=== PATIENT | female | born 1940 | race Caucasian/White ===

== ENCOUNTER 2016-12-26 21:28 | Inpatient (IN) ==
[2016-12-26] MEDS ORDERED: ASPIRIN PO STA (21:38)
[2016-12-26 21:54] LABS: MANUAL DIFF NEEDED? NO
[2016-12-26 21:58] LABS: BASO% 0.4 % (0.0-0.8); EOS# 0.21 X1000 (0.0-0.7); EOS% 2.1 % (0.0-10.0); HEMATOCRIT 39.5 % (37.0-47.0); IMM GRAN# 0.01 X1000 (0.0-0.04); IMM GRAN% 0.1 % (0.0-0.5); LYMPH# 2.07 X1000 (1.2-3.4); MCH 29.5 PG (27-31); MCHC 32.9 g/dL (33-37); MCV 89.8 FL (81-99); MONO# 0.84 X1000 (0.11-0.59); MONO% 8.5 % (1.7-9.3); MPV 11.9 FL (7.4-10.4); NEUT% 67.9 % (42.2-75.2); PLT 197 X1000 (130-400)
[2016-12-26 22:18] LABS: INR 0.95 (0.86-1.15)
[2016-12-26 22:22] LABS: ALBUMIN 4.1 g/dL (3.5-5.0); CALCIUM 9.5 mg/dL (8.8-10.2); MAGNESIUM 2.1 mg/dL (1.5-2.7); POTASSIUM 3.5 mmol/L (3.5-5.1); TOTAL BILIRUBIN 0.4 mg/dL (0.20-1.00); TOTAL PROTEIN 6.8 g/dL (6.3-8.3)
[2016-12-26 22:27] LABS: PTT PL < 20.0 Seconds (22.6-43.9)
--- NOTE | 2016-12-26 23:38 | EKG Report ---
Test Performed on : 12/26/2016 9:32:21 PM Test Reason : CP Blood Pressure : / mmHG Vent. Rate : 080 BPM Atrial Rate : 080 BPM P-R Int : 176 ms QRS Dur : 094 ms QT Int : 380 ms P-R-T Axes : 076 023 056 degrees QTc Int : 438 ms Normal sinus rhythm. Normal ECG When compared with ECG of 11-OCT-2014 00:17, Nonspecific T wave abnormality no longer evident in Lateral leads Unconfirmed Result
[2016-12-27] MEDS ORDERED: ZOFRAN IV PRN ×2 (01:17→10:44)
[2016-12-27] MEDS ORDERED: MORPHINE IV PRN (01:17)
--- NOTE | 2016-12-27 08:49 | Diag Imaging Result Document ---
PROCEDURE NAME: ANGIOGRAM/PULMONARY ARTERIES - 12/26/2016 CT PULMONARY ANGIOGRAM WITH INTRAVENOUS CONTRAST: A CT dose reduction protocol was used. COMPARISON: 04/29/2016. FINDINGS: Axial CT images of the chest were obtained, after administering intravenous contrast. Coronal MIP images were generated. There is no pulmonary embolism. There is COPD. There is mild pulmonary scarring in the lung bases, particularly on the left side. No infiltrate. There are CABG changes. Heart size is normal. Upper abdominal images are unremarkable. Bony structures are intact. 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 IMPRESSION: No acute disease or change from prior. MTDD
[2016-12-27] MEDS ORDERED: DUONEB (A & A) INH PRN (10:45)
[2016-12-27] MEDS ORDERED: HUMALOG DOSE (PARKWAY) SUBQ SCH (11:00)
[2016-12-27] MEDS ORDERED: ALBUTEROL NEB INH PRN (11:01)
[2016-12-27] MEDS ORDERED: NAPROSYN PO PRN (11:03)
--- NOTE | 2016-12-27 11:11 | Diag Imaging Result Document ---
PROCEDURE NAME: CHEST-2 VIEWS - 12/26/2016 CHEST X-RAY, TWO VIEWS: COMPARISON: 08/04/2016. FINDINGS: Stable mild COPD with some pulmonary scarring in the left base. Stable CABG changes. No focal infiltrates, pneumothorax, or pleural effusion. Heart size is normal. IMPRESSION: No acute disease or change from prior.
[2016-12-27] MEDS ORDERED: LOSARTAN PO SCH (11:15)
[2016-12-27] MEDS ORDERED: NORVASC PO SCH (11:15)
[2016-12-27] MEDS ORDERED: FLONASE NAS SCH (11:15)
[2016-12-27] MEDS ORDERED: PRILOSEC PO SCH (11:15)
[2016-12-27] MEDS ORDERED: SYNTHROID PO SCH (11:15)
[2016-12-27] MEDS ORDERED: HYDROCHLOROTHIAZIDE PO SCH ×2 (11:15)
[2016-12-27] MEDS ORDERED: COZAAR PO SCH (11:15)
--- NOTE | 2016-12-27 13:36 | HISTORY AND PHYSICAL ---
PRIMARY CARE PROVIDER: Jocelynn West CHIEF COMPLAINT: Chest tightness. HISTORY OF PRESENT ILLNESS: This is a 76-year-old female with a history of CAD, COPD, who presented to the emergency room complaining of chest tightness. She states that she has arthritis and that she started having a flare up of her arthritis over the last 24 hours. It started out as a pain in her back. She said that it has increased to bilateral knee pain as well as rib pain. She states this pain does increase with movement and decreases with rest. She states that she has had chest tightness along with some increase in shortness of breath. She feels like her COPD is exacerbating, as chest tightness is her normal symptom. She denied palpitations, dizziness, syncope, any nausea, vomiting. She states that she was given an aspirin in the emergency room, and within about 45 minutes after receiving the aspirin, her arthritic pain through generalized body did decrease. Her troponin was negative. She was found to have a D-dimer of 0.82. CTA pulmonary was performed which revealed no acute disease or change from prior. No pulmonary embolus. There is COPD. Mild pulmonary scarring in the lung bases, particularly on the left. No infiltrate. She has had severe degeneration of the shoulders bilaterally. She was admitted for further evaluation and treatment. PAST MEDICAL HISTORY: COPD, obstructive sleep apnea with BiPAP at night, hypertension, hypothyroidism, history of uterine cancer. PAST SURGICAL HISTORY: Laparoscopic cholecystectomy, hysterectomy, total hip, coronary artery bypass graft. SOCIAL HISTORY: She denies alcohol, tobacco or illicit drug use. ALLERGIES: Stadol which causes shortness of breath, Zithromax which causes a rash, Demerol which causes anaphylaxis, Bactrim which causes nausea and vomiting. HOME MEDICATIONS: A list will be obtained once updated. REVIEW OF SYSTEMS: A 14-point review of systems is discussed with the patient with pertinent positives being generalized bone pain secondary to arthritis, dyspnea on exertion and chest tightness. She denied dizziness, syncope, palpitations, any productive cough, fever, chills, night sweats, recent weight loss or weight gain, any nausea, vomiting, diarrhea, constipation, black or bloody vomitus, black or bloody stools, hematuria, dysuria, frequency or urgency. PHYSICAL EXAMINATION: GENERAL: This is a 76-year-old female who is sitting up in the bed in no distress. VITAL SIGNS: Blood pressure is 110/54 with heart rate of 56, respirations 16, temperature 97.3 oral with oxygen saturation of 97% to 99% on home BiPAP and 94% to 95% on room air. HEENT: Head is normocephalic and atraumatic. Pupils are equal, round and reactive to light. EOMs are intact. Sclerae anicteric. Mucous membranes are moist. NECK: Supple. Trachea midline. CARDIOVASCULAR: Regular rate and rhythm. S1 and S2 are appreciated. PULMONARY: Breath sounds are clear with no increased work of breathing noted. GASTROINTESTINAL: Abdomen is soft, nontender and nondistended with bowel sounds in all 4 quadrants. MUSCULOSKELETAL: Good range of motion to joints. NEUROLOGICAL: She is alert and oriented x3 with cranial nerves II through XII grossly intact. EXTREMITIES: No cyanosis, clubbing or edema. Pulses are palpable x4. Calves are nontender. DIAGNOSTIC DATA: WBC is 9.84, hemoglobin 13, hematocrit 39.5, platelets 197. INR is 0.95 with D- dimer of 0.82. Sodium 138, potassium 3.5, BUN is 25, creatinine 1 with glucose of 163. Troponin is less than 0.010. CTA pulmonary revealed no pulmonary embolus with no acute process. ASSESSMENT AND PLAN: 1. Chest tightness. The patient does state this is her normal tightness with her COPD. She has had no further since shortly after arriving to the emergency room. We will continue to follow. We will identify her home medications and restart as appropriate. 2. Chest pain. She states that this pain she feels is her arthritis pain that started in her neck and over the last 24 to 48 hours has slowly spread to all of her joints. This was relieved about an hour after having aspirin in the emergency room. She does have a history of CAD. Her first troponin was negative. We will continue to trend her troponins. Continue with telemetry. Follow. 3. Chronic obstructive pulmonary disease. As stated above. 4. Hypothyroidism. In the past, she has had dosages changed due to overuse of medication. We will verify her dose and continue her levothyroxine once verified and will get TSH. 5. Diabetes mellitus. We will verify medications and pattern blood glucose with sliding scale insulin. 6. Hypertension. We will continue her home medications. Further treatments pending hospital course. Dictated by OPAL Dukes for Eder Pabon MD cc: OPAL Dukes MD
[2016-12-27 14:43] VITALS: BP 115/61
--- NOTE | 2016-12-27 17:23 | DISCHARGE SUMMARY ---
ADMISSION DATE: 12/27/2016 DISCHARGE DATE: 12/27/2016 DISCHARGE DIAGNOSES: 1. Chest pain resolved. 2. Elevated D-dimer. 3. Known history of coronary artery disease. 4. Right shoulder pain. 5. High cholesterol. 6. Chronic steroid dependence. 7. Hypertension. 8. Hypothyroidism. CONSULTATIONS: None. PROCEDURES: None. BRIEF HOSPITAL COURSE: The patient is a 76-year-old female, was admitted as noted on the HPI secondary to chest pain although after speaking to her she states this is more of a pain in her right shoulder. Because she has a history of coronary artery disease she felt nervous and came to the ER. Apparently that is the reason she was admitted overnight. Her enzymes have been negative. Her pain is better and she notes that Naprosyn actually will make her pain even better. DISPOSITION: Thirty-five minutes was spent in discharge planning and instructions. Patient is awake, alert. She is in no distress and therefore she will be discharged home. She will follow up outpatient with her primary care. She will continue her home medications without any changes. cc: Eder Pabon MD
[2016-12-27] MEDS ORDERED: CRESTOR PO SCH (21:00)
[2016-12-27] MEDS ORDERED: SINGULAIR PO SCH (21:00)
[2016-12-28] MEDS ORDERED: PREDNISONE PO SCH (09:00)
[2016-12-28] MEDS ORDERED: THERA M PLUS PO SCH (09:00)
--- NOTE | 2017-01-01 18:51 | ED EKG INTERP ---
This chart was entered by Samia Johns Scribe, acting as scribe for Abilio Mcclellan DO. EKG Interpretation - EKG Time of EKG reading by physician:: 21:32 EKG Read and Signed by:: Abilio Mcclellan EKG Interpretation (*Must complete 3 of following elements*): Normal Rate: 80 Rhythm: NSR [place]: normal QRS: normal [place] Interval: normal ST Wave: normal This chart was documented by the indicated scribe, (Samia Johns Scribe) and accurately reflects the services I performed and decisions made by , Abilio Mcclellan DO, as attested by the provider's signature.
--- NOTE | 2017-01-01 18:52 | PROVIDER DOCUMENTATION ---
This chart was entered by Samia Johns Scribe, acting as scribe for Abilio Mcclellan DO. HPI-Chest Pain - General Chief Complaint: Chest Pain Stated Complaint: CHEST PAIN Time Seen by Provider: 12/26/16 21:38 Source: patient Allergies/Adverse Reactions: Patient Allergies Allergy/AdvReac Type Severity Reaction Status Date / Time butorphanol tartrate * Allergy Intermediate SHORTNESS Verified 08/04/16 19:55 [From Stadol] OF BREATH azithromycin Allergy Mild RASH Verified 08/04/16 19:55 [From Zithromax Z-Randy] meperidine HCl * AdvReac Severe ANAPHYLAXIS Verified 08/04/16 19:55 [From Demerol] sulfamethoxazole AdvReac NAUSEA/VOMI Verified 08/04/16 19:55 [From Bactrim] TING trimethoprim [From Bactrim] AdvReac NAUSEA/VOMI Verified 08/04/16 19:55 TING Home Medications: Home Medication List Medication Instructions Recorded Confirmed Last Taken Type Esomeprazole Magnesium [Nexium] 20 mg PO DAILY 03/09/14 12/27/16 08/24/15 History Fluticasone 50 Mcg Nasal [place] 2 spray KRIS DAILY 03/09/14 12/27/16 08/24/15 History [Flonase] Montelukast [Singulair] 10 mg PO QHS 03/09/14 12/27/16 08/24/15 History Multivitamin [Multivitamins] 1 each PO DAILY 03/09/14 12/27/16 08/24/15 History Rosuvastatin Calcium [Crestor] 40 mg PO HS 03/09/14 12/27/16 08/24/15 History Albuterol Sulfate [Albuterol 8.5 gm IH DIRECTED PRN 10/08/14 12/27/16 History Sulfate Hfa] Albuterol [Albuterol Neb] 2.5 mg INH Q4H PRN PRN 10/08/14 12/27/16 08/24/15 History Amlodipine Besylate [Norvasc] 5 mg PO DAILY 10/08/14 12/27/16 08/24/15 History Losartan/Hydrochlorothiazide 1 each PO BID 10/08/14 12/27/16 08/24/15 History [Losartan-Hctz 50-12.5 mg Tab] Levothyroxine [Synthroid] 100 microgm PO DAILY #30 tablet 08/17/15 12/27/1601/03 Rx Prednisone 10 mg PO DAILY #20 tablet 08/17/15 12/27/16 08/24/15 Rx Amoxicillin/Pot Clavulanate 875 mg PO Q12HR #20 tablet 08/05/16 12/27/16 Unknown Rx [Augmentin] Doxycycline 100 mg PO BID #20 capsule 08/05/16 12/27/16 Unknown Rx Prednisone [Deltasone] 40 mg PO DAILY #8 tablet 08/05/16 12/27/16 Unknown Rx - History of Present Illness-CP Nature of Presenting Problem: PT IS A 76YOF PRESENTING TO THE ED C/O CP. PT STATES SHE BEGAN HAVING CP TODAY WITHOUT ANY N/V/DIAPHORESIS. PT DOES HAVE ACARDIAC HISTORY BUT AT TIME OF EXAM SHE IS PAIN FREE. NO OTHER COMPLAINTS NOTED AT THIS TIME Location: reports: central Chest Pain Radiation: reports: no radiation Quality of Pain: reports: dull Severity in ED: mild Onset/Duration: 4-6 hours ago Timing: gone now (3) Context/Activities at Onset: reports: light activity Modifying Factors: improves with: nothing Associated Symptoms: denies: abdominal pain, back pain, diaphoresis, nausea, shortness of breath, vomiting, weakness Nitro Today/Relief: 0.4 mg x 1, provided by ED Aspirin Treatment Today: 325 mg x 1, provided by ED Prior Chest Pain/Cardiac Workup: reports: other (CARDIAC HISTORY) Similar Symptoms Previously?: Yes Recently Seen Here or By Another Healthcare Provider: No Review of Systems - Adult - REVIEW OF SYSTEMS - ADULT Constitutional: reports: no symptoms reported Eyes: reports: no symptoms reported Ears, Nose, Mouth & Throat: reports: no symptoms reported Cardiovascular: reports: see HPI, chest pain. denies: palpitations, syncope Respiratory: reports: no symptoms reported Gastrointestinal: reports: no symptoms reported Genitourinary: reports: no symptoms reported Musculoskeletal: reports: no symptoms reported Integumentary: reports: no symptoms reported Neurological: reports: no symptoms reported Psychiatric: reports: no symptoms reported Endocrine: reports: no symptoms reported Hematologic/Lymphatic: reports: no symptoms reported Allergic/Immunologic: reports: no symptoms reported All Other Systems: Reviewed and Negative Past History - Adult - PAST MEDICAL HISTORY-ADULT Review of Records: reports: Old Records Reviewed, Nursing Assessment Review, Medications Reviewed, Social history reviewed & non-contributory. Major Childhood Illnesses: reports: denies history Cardiovascular: reports: cardiac disease (cardiac disorder), HTN, hyperlipidemia Respiratory: reports: COPD Gastrointestinal: reports: GERD Obstetrical/Gynecological: reports: uterine/ovarian cancer Genitourinary: reports: denies history Musculoskeletal: reports: denies history Neurological: reports: denies history Endocrine/Immune: reports: Diabetes, thyroid disorder (hypothyroid) Other Conditions: reports: other (cancer) - PRIOR SURGERIES/PROCEDURES Surgical/Procedure History: reports: cholecystectomy, hysterectomy, orthopedic ( extremity) (arthroscopy), joint replacement (total hip replacement/left hip), other (total hip) - IMMUNIZATION STATUS Childhood Immunizations: See Nurse Assessment Flu Vaccine: See Nurse Assessment - FAMILY HISTORY Family History: reviewed, not pertinent - SOCIAL HISTORY Smoking: denies, non-smoker Substance Use: none/never, denies Alcohol Use Frequency: never Living Situation: family Physical Exam-General - PHYSICAL EXAM-ADULT Initial Vital Signs Reviewed: Yes - CONSTITUTIONAL General Appearance: appears well, alert, no apparent distress - EYES Eyes: PERRL/EOMI, pink conjunctivae, fundi clear, no AV nicking - HEAD, EARS, NOSE, MOUTH & THROAT HENMT: normocephalic/atraumatic, moist mucous membranes, normal ENT inspection, TMs normal, pharynx normal - NECK Neck: non-tender, full range of motion, supple, normal inspection - RESPIRATORY Respiratory: chest non-tender, lungs clear, normal breath sounds, no pleuratic chest pain, no respiratory distress, no accessory muscle use - CARDIOVASCULAR Cardiovascular: normal peripheral pulses, regular rate, rhythm, no edema, no gallop, no JVD, no murmur - GASTROINTESTINAL (ABDOMEN) Abdominal Exam: normal bowel sounds, non tender, soft, no organomegaly, no pulsatile mass - LYMPHATIC Lymphatic: no adenopathy - MUSCULOSKELETAL Back Exam: normal inspection, no CVA tenderness, no vertebral tenderness Extremity: normal range of motion, non-tender, normal gait, normal inspection, no pedal edema, no calf tenderness, normal capillary refill, pelvis stable - SKIN Integumentary: normal color, normal turgor, warm/dry - 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, grossly normal, no motor/sensory deficits - PSYCHIATRIC Psych/Mental Status: normal mood/affect, normal thought content, normal thought process, oriented x 3 Progress - PLAN OF CARE/RESULTS Progress/Plan/Lab Results: Orders Category Date Time Status Admit - [facility] Routine AdmDCTranf 12/27/16 01:17 Ordered Activity - Strict Bedrest ORDERED Care 12/27/16 01:17 Active Call Admitting on Arrival AT ADMISSION Care 12/27/16 01:18 Completed Cardiac Monitoring DIRECTED Care 12/26/16 21:38 Active Saline Loc DIRECTED Care 12/27/16 01:17 Active Saline Loc NOW Care 12/26/16 21:38 Completed Vital Signs Order ARRIVAL TO ROOM Care 12/27/16 01:17 Active Heart Healthy Diet Diet 12/27/16 01:18 Completed CHEST-2 VIEWS [RAD] Stat Exams 12/26/16 21:38 Completed CTA [ANGIOGRAM/PULMONARY ARTERIES] [CT] Stat Exams 12/26/16 23:26 Completed CBC WITH ELECTRONIC DIFF [HEME] Stat Lab 12/26/16 21:40 Completed CK PROFILE [SP CHEM] Stat Lab 12/26/16 21:40 Completed COMPREHENSIVE METABOLIC PANEL [CHEM] Stat Lab 12/26/16 21:40 Com[address] D-DIMER [address] [COAG] Stat Lab 12/26/16 21:40 Completed MAGNESIUM [CHEM] Stat Lab 12/26/16 21:40 Completed PRO B-NATRIURETIC PEPTIDE Stat Lab 12/26/16 21:40 Completed PROTIME WITH INR PL [COAG] Stat Lab 12/26/16 21:[address] [COAG] Stat Lab 12/26/16 21:40 Completed TROPONIN T Stat Lab 12/26/16 21:40 Completed Aspirin Med 12/26/16 21:38 Discontinued 325 mg PO STAT STA Morphine Med 12/27/16 01:17 Discontinued 2 mg IV Q2H PRN PRN Ondansetron [Zofran] Med 12/27/16 01:17 Discontinued 4 mg IV Q4H PRN PRN Oxygen Device Routine Oth 12/27/16 01:18 Completed EKG [EKG] Stat Ther 12/26/16 21:38 Draft Transfer/Admit Order [TRANSFER] Routine Transfer 12/27/16 01:19 Completed Result Diagrams: 12/26/16 21:40 12/26/16 21:40 - CT/MRI 1 CT Study: Angiogram (EVIDENCE OLD PE, ATELECTASIS AND SCARRING BILATTERALY, SEVERAL SMALL INDETERMINATE NODULAR DENSITIES) - CONSULTS/PCP/HOSPITALIST Notification #1 *Consult/PCP/Hospitalist*: KRISHNA Time Discussed: 01:10 (KRISHNA CONSULTED FOR ADMISSION OF CP/SOB, PT WILL HAVE TO HOLD IN ER OR TRANSFER TO [facility]) Consult Disposition: Admit Departure - Departure Time of Disposition Decision: 23:00 DIAGNOSIS: Chest pain Disposition: ADMITTED INPATIENT 09 Certified Medical Emergency: Emergent Condition: Stable This chart was documented by the indicated scribe, (Samia Johns Scribe) and accurately reflects the services I performed and decisions made by , Abilio Mcclellan DO, as attested by the provider's signature.
== END 2016-12-27 16:00 | disposition home or self-care (01) ==
LOC: P.ED 21:28 → P.MEDSURG 12-27 02:34
PROVIDERS: ATTEND Family Medicine

== ENCOUNTER 2017-01-07 16:24 | Inpatient (IN) ==
[2017-01-07] MEDS ORDERED: DUONEB (A & A) INH ONE ×2 (20:34→21:29)
[2017-01-07] MEDS ORDERED: SOLU-MEDROL IV ONE (20:34)
[2017-01-07 21:59] LABS: ALLEN TEST YES; BE 5.2 mmoll (-3.0-3.0); BLOOD TYPE ARTERIAL; DRAW SITE R RADIAL; METHB 1.5 % (0.0-1.5); O2(CT) 16.5 mL/dL (15.0-23.0); PCO2(98.6) 39 mmHg (35-45); PO2(98.6) 68 mmHg (60-100); SAMPLE BLOOD; SAO2 97.8 % (95.0-100.0); THB 12.4 g/dL (11.5-17.4); pH(98.6) 7.48 (7.35-7.45)
[2017-01-07 22:01] LABS: MODALITY ROOM AIR
[2017-01-07 22:13] LABS: BASO% 0.6 % (0.0-0.8); EOS# 0.53 X1000 (0.0-0.7); HEMATOCRIT 37.9 % (37.0-47.0); HEMOGLOBIN 12.8 g/dL (12.0-16.0); IMM GRAN# 0.04 X1000 (0.0-0.04); IMM GRAN% 0.5 % (0.0-0.5); LYMPH# 2.97 X1000 (1.2-3.4); LYMPH% 33.6 % (20.5-51.1); MANUAL DIFF NEEDED? NO; MCH 30.4 PG (27-31); MCHC 33.8 g/dL (33-37); MONO% 6.8 % (1.7-9.3); MPV 12.4 FL (7.4-10.4); NEUT% 52.5 % (42.2-75.2); PLT 146 X1000 (130-400); RBC 4.21 XMIL (4.2-5.4)
[2017-01-07 22:34] LABS: AGAP 18; ALBUMIN 3.8 g/dL (3.5-5.0); ALKALINE PHOSPHATASE 74 U/L (32-104); BUN 19 mg/dL (8-22); CALCIUM 9.9 mg/dL (8.8-10.2); CHLORIDE 101 mmol/L (98-107); COSMO 288; GOT 17 U/L (10-30); GPT 15 U/L (10-36); MAGNESIUM 2.1 mg/dL (1.5-2.7); POTASSIUM 3.4 mmol/L (3.5-5.1); SODIUM 143 mmol/L (136-145); TCO2 24 mmol/L (25-35); TOTAL BILIRUBIN 0.31 mg/dL (0.20-1.00); TOTAL PROTEIN 7.3 g/dL (6.3-8.3)
--- NOTE | 2017-01-07 23:31 | PROVIDER DOCUMENTATION ---
This chart was entered by Samai Johns Scribe, acting as scribe for Devonte Nath PA. HPI-Respiratory General - General Chief Complaint: Shortness of Breath Stated Complaint: COPD,CANT BREATHE Time Seen by Provider: 01/07/17 20:29 Source: patient Allergies/Adverse Reactions: Patient Allergies Allergy/AdvReac Type Severity Reaction Status Date / Time butorphanol tartrate * Allergy Intermediate SHORTNESS Verified 01/07/17 20:29 [From Stadol] OF BREATH azithromycin Allergy Mild RASH Verified 01/07/17 20:29 [From Zithromax Z-Randy] meperidine HCl * AdvReac Severe ANAPHYLAXIS Verified 01/07/17 20:29 [From Demerol] sulfamethoxazole AdvReac NAUSEA/VOMI Verified 01/07/17 20:29 [From Bactrim] TING trimethoprim [From Bactrim] AdvReac NAUSEA/VOMI Verified 01/07/17 20:29 TING Home Medications: Home Medication List Medication Instructions Recorded Confirmed Last Taken Type Esomeprazole Magnesium [Nexium] 20 mg PO DAILY 03/09/14 01/07/17 01/07/17 History Fluticasone 50 Mcg Nasal [place] 2 spray KRIS DAILY 03/09/14 01/07/17 01/07/17 History [Flonase] Montelukast [Singulair] 10 mg PO QHS 03/09/14 01/07/17 01/07/17 History Multivitamin [Multivitamins] 1 each PO DAILY 03/09/14 01/07/17 01/07/17 History Rosuvastatin Calcium [Crestor] 40 mg PO HS 03/09/14 01/07/17 01/07/17 History Albuterol Sulfate [Albuterol 8.5 gm IH DIRECTED PRN 10/08/14 01/07/17 History Sulfate Hfa] Albuterol [Albuterol Neb] 2.5 mg INH Q4H PRN PRN 10/08/14 01/07/17 01/07/17 History Amlodipine Besylate [Norvasc] 5 mg PO DAILY 10/08/14 01/07/17 01/07/17 History Losartan/Hydrochlorothiazide 1 each PO BID 10/08/14 01/07/17 01/07/17 History [Losartan-Hctz 50-12.5 mg Tab] Levothyroxine [Synthroid] 100 microgm PO DAILY #30 tablet 08/17/15 01/07/17 Rx - History of Present Illness-Resp Nature of Presenting Problem: PT IS A 76YOF PRESENTING TO THE ED C/O SOB. PT STATES SHE HAS A HX OF COPD AND FOR THE PAST 24HOURS SHE HAS BECAME MORE SOB. PT STATES YESTERDAY SHE TOOK ALL HER ROUTINE MEDS AND WELL 4 BREATHING TREATMENTS WITHOUT RELIEF. TODAY SHE CAME IN WITH A COPD EXAC AND GIVEN A TREATMENT AND STEROIDS IN ED AND HASN' T GOTTEN MUCH RELIEF AT THIS TIME. NO OTHER COMPLAINTS NOTED AT THIS TIME Quality of Pain: reports: fullness Severity in ED: reports: mild Onset/Duration: reports: 24 hours ago Timing: reports: still present Context: reports: other Exposure: reports: unknown cause Cough Quality/Degree: reports: mild, dry cough Episode Frequency: chronic episodes Current Respiratory Medication Therapy: Initiated see nurses note Modifying Factors: improves with: exertion Associated Symptoms: reports: cough, shortness of breath, wheezing. denies: lightheadedness, nasal congestion Similar Symptoms Previously?: Yes Recently seen or treated by another doctor?: No Review of Systems - Adult - REVIEW OF SYSTEMS - ADULT Constitutional: reports: no symptoms reported Eyes: reports: no symptoms reported Ears, Nose, Mouth & Throat: reports: no symptoms reported Cardiovascular: reports: no symptoms reported Respiratory: reports: see HPI, chronic cough, dyspnea on exertion, shortness of breath, wheezing Gastrointestinal: reports: no symptoms reported Genitourinary: reports: no symptoms reported Musculoskeletal: reports: no symptoms reported Integumentary: reports: no symptoms reported Neurological: reports: no symptoms reported Psychiatric: reports: no symptoms reported Endocrine: reports: no symptoms reported Hematologic/Lymphatic: reports: no symptoms reported Allergic/Immunologic: reports: no symptoms reported All Other Systems: Reviewed and Negative Past History - Adult - PAST MEDICAL HISTORY-ADULT Review of Records: reports: Old Records Reviewed, Nursing Assessment Review, Medications Reviewed, Social history reviewed & non-contributory. Major Childhood Illnesses: reports: denies history Cardiovascular: reports: cardiac disease (cardiac disorder), HTN, hyperlipidemia Respiratory: reports: COPD Gastrointestinal: reports: GERD Obstetrical/Gynecological: reports: uterine/ovarian cancer Genitourinary: reports: denies history Musculoskeletal: reports: denies history Neurological: reports: denies history Endocrine/Immune: reports: Diabetes, thyroid disorder (hypothyroid) Other Conditions: reports: other (cancer) - PRIOR SURGERIES/PROCEDURES Surgical/Procedure History: reports: cholecystectomy, hysterectomy, orthopedic ( extremity) (arthroscopy), joint replacement (total hip replacement/left hip), other (total hip) - IMMUNIZATION STATUS Childhood Immunizations: See Nurse Assessment Flu Vaccine: See Nurse Assessment - FAMILY HISTORY Family History: reviewed, not pertinent - SOCIAL HISTORY Smoking: denies, non-smoker Substance Use: none/never, denies Alcohol Use Frequency: never Living Situation: family Physical Exam-General - PHYSICAL EXAM-ADULT Initial Vital Signs Reviewed: Yes - CONSTITUTIONAL General Appearance: appears well, alert, mild distress. negative: no apparent distress - EYES Eyes: PERRL/EOMI, pink conjunctivae, fundi clear, no AV nicking - HEAD, EARS, NOSE, MOUTH & THROAT HENMT: normocephalic/atraumatic, moist mucous membranes, normal ENT inspection, TMs normal, pharynx normal - NECK Neck: non-tender, full range of motion, supple, normal inspection - RESPIRATORY Respiratory: chest non-tender, no pleuratic chest pain, no respiratory distress , no accessory muscle use, respiratory distress, wheezing. negative: lungs clear, normal breath sounds - CARDIOVASCULAR Cardiovascular: normal peripheral pulses, regular rate, rhythm, no edema, no gallop, no JVD, no murmur - GASTROINTESTINAL (ABDOMEN) Abdominal Exam: normal bowel sounds, non tender, soft, no organomegaly, no pulsatile mass - LYMPHATIC Lymphatic: no adenopathy - MUSCULOSKELETAL Back Exam: normal inspection, no CVA tenderness, no vertebral tenderness Extremity: normal range of motion, non-tender, normal gait, normal inspection, no pedal edema, no calf tenderness, normal capillary refill, pelvis stable - SKIN Integumentary: normal turgor, warm/dry, pallor - 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 negative: normal mood/affect Progress - PLAN OF CARE/RESULTS Progress/Plan/Lab Results: Vital Signs - 8 hr 01/07/17 17:05 01/07/17 21:02 01/07/17 21:34 Temperature 97.8 F 97.6 F Pulse Rate 87 88 80 Respiratory Rate 20 16 20 Blood Pressure 170/64 149/53 O2 Sat by Pulse Oximetry 96 96 Laboratory Results - last 24 hr 01/07/17 01/07/17 01/07/17 21:50 21:50 21:50 WBC 8.84 RBC 4.21 Hgb 12.8 Hct 37.9 MCV 90.0 MCH 30.4 MCHC 33.8 RDW Std Deviation 14.3 Plt Count 146 MPV 12.4 H Immature Gran % (Auto) 0.5 Neut % (Auto) 52.5 Lymph % (Auto) 33.6 [place] % (Auto) 6.8 Eos % (Auto) 6.0 Baso % (Auto) 0.6 Immature Gran # (Auto) 0.04 Neut # (Auto) 4.65 Lymph # (Auto) 2.97 [place] # (Auto) 0.60 H Eos # (Auto) 0.53 Baso # (Auto) 0.05 Specimen Type ARTERIAL Sample Site R RADIAL pH 7.48 H pCO2 39 pO2 68 HCO3 28.9 H Base Excess 5.2 H Oxyhemoglobin 94.7 L ABG O2 Sat (Calculated) 16.5 ABG O2 Saturation 97.8 ABG Carboxyhemoglobin 1.70 ABG Methemoglobin 1.5 Josh Test YES A-a O2 Difference 33.0 Total Hemoglobin 12.4 Lactate 0.80 Blood Gas Modality ROOM AIR FiO2 % 21.0 Sodium 143 Potassium 3.4 L Chloride 101 Carbon Dioxide 24 L Anion Gap 18 BUN 19 Creatinine 0.9 Estimated GFR/1.73 m2 > 60 BUN/Creatinine Ratio 21 Glucose 111 H Calculated Osmolality 288 Calcium 9.9 Magnesium 2.1 Total Bilirubin 0.31 AST 17 ALT 15 Alkaline Phosphatase 74 Total Protein 7.3 Albumin 3.8 Globulin 3.5 Albumin/Globulin Ratio 1.1 Orders Category Date Time Status Saline Loc NOW Care 01/07/17 21:28 Active CHEST-2 VIEWS [RAD] Stat Exams 01/07/17 17:31 Taken ABG [RESP] Routine Lab 01/07/17 21:50 Completed CBC WITH ELECTRONIC DIFF [HEME] Stat Lab 01/07/17 21:50 Completed COMPREHENSIVE METABOLIC PANEL [CHEM] Stat Lab 01/07/17 21:50 Completed MAGNESIUM [CHEM] Stat Lab 01/07/17 21:50 Completed Albuterol 2.5MG/Ipratrop 0.5MG [Duoneb (A & A)] Med 01/07/17 20:34 Discontinued 3 ml INH NOW ONE Albuterol 2.5MG/Ipratrop 0.5MG [Duoneb (A & A)] Med 01/07/17 21:29 Discontinued 3 ml INH NOW ONE Methylprednisolone Sod Succ [Solu-Medrol] Med 01/07/17 20:34 Discontinued 80 mg IV NOW ONE Aerosol Treatments Routine Oth 01/07/17 20:34 Completed Aerosol Treatments Routine Oth 01/07/17 21:29 Completed Aerosol Treatments Stat Oth 01/07/17 20:34 Completed Aerosol Treatments Stat Ot 01/07/17 21:29 Completed After 6 breathing treatments pt is still having moderate expiratory wheezes. She is currently on her home CPAP machine. Will admit for uncontrolled COPD exacerbation. Result Diagrams: 01/07/17 21:50 01/07/17 21:50 - CONSULTS/PCP/HOSPITALIST Notification #1 *Consult/PCP/Hospitalist*: Dr. Null Time Discussed: 23:31 Consult Disposition: Admit Departure - Departure Time of Disposition Decision: 23:31 DIAGNOSIS: COPD exacerbation Disposition: HOME 01 Certified Medical Emergency: Emergent Condition: Good Referrals and Follow-Ups: Jocelynn West [Primary Care Provider] - Attestation - Physician/ STEPHEN Attestation Patient care was provided by Advanced Practice Provider:: Yes Advanced Practice Provider:: Devonte Nath Advanced Practice Provider documentation review:: The Mid-level provider documentation, treatment plan and medical decision making was reviewed by the physician who agrees with all treatment and medical decision making by the MLP. This chart was documented by the indicated scribe, (Samia Johns Scribe) and accurately reflects the services I performed and decisions made by Portillo chaney Steven Wesley, PA, as attested by the provider's signature.
[2017-01-08] MEDS ORDERED: ZOFRAN IV PRN (01:22)
[2017-01-08] MEDS: NS 1,000 ML IV SCH ×2 (02:21→15:06)
[2017-01-08] MEDS: ROCEPHIN 1 GM/NS 1 GM/50 ML IVPB IV SCH (02:22)
[2017-01-08] MEDS: LOVENOX SUBQ SCH (02:28)
[2017-01-08] MEDS: LEVAQUIN 750 MG/D5W 750 MG/150 ML IVPB IV SCH (03:24)
[2017-01-08] MEDS: DUONEB (A & A) INH SCH ×6 (04:44→23:06)
[2017-01-08] MEDS: SOLU-MEDROL IV SCH ×3 (05:24→21:17)
[2017-01-08] MEDS: SYNTHROID PO SCH (06:43)
[2017-01-08] MEDS: PRILOSEC PO SCH (06:43)
[2017-01-08 06:59] LABS: BILIRUBIN URINE NEGATIVE (NEGATIVE); BLOOD URINE NEGATIVE (NEGATIVE); CLARITY HAZY (CLEAR); COLOR AMBER; GLUCOSE URINE NEGATIVE (NEGATIVE); LEUKOCYTES URINE 1+ (NEGATIVE); NITRITE URINE NEGATIVE (NEGATIVE); PH URINE 6.5; PROTEIN URINE TRACE mg/dL (NEGATIVE); SP GRAVITY URINE 1.015; UROBILINOGEN URINE NORMAL
[2017-01-08 07:05] LABS: URINE CULTURE PL NEEDED? YES; URINE EPITHELIAL CELLS <10 /HPF (<10); URINE RBC <10 /HPF (<10); URINE SOURCE CLEAN CATCH; URINE WBC <10 /HPF (<10)
[2017-01-08] MEDS: SPIRIVA INH SCH (08:17)
[2017-01-08] MEDS: THERA M PLUS PO SCH (08:38)
[2017-01-08] MEDS: HYDROCHLOROTHIAZIDE PO SCH ×3 (08:38→21:17)
[2017-01-08] MEDS: FLONASE NAS SCH (08:38)
[2017-01-08] MEDS: COZAAR PO SCH ×2 (08:38→21:16)
[2017-01-08] MEDS: NORVASC PO SCH (08:38)
--- NOTE | 2017-01-08 08:44 | HISTORY AND PHYSICAL ---
PRIMARY CARE PHYSICIAN: Jocelynn West NP. CHIEF COMPLAINT: Shortness of breath. HISTORY OF PRESENT ILLNESS: This is a 76-year-old female with history of severe COPD, coronary artery disease, who presented to the Emergency Department complaining of shortness of breath. The patient has been admitted to the hospital approximately 10 days ago for chest tightness and chest pain. She actually reported that since discharge she is complaining of mild shortness of breath that was getting worse, and she was seen in the ER. They tried two breathing treatments, and even before coming to the ER she tried three breathing treatments but she was still complaining of shortness of breath. She reports some cough with sometimes greenish and whitish sputum that was going on for the last week. She denies any fever documented, no chills. Now in the ER, as we mentioned before, after providing 3 breathing treatments patient still reported shortness of breath so we are admitting this patient as an observation. PAST MEDICAL HISTORY: 1. COPD. 2. Obstructive sleep apnea with BiPAP at night. 3. Hypertension. 4. Hypothyroidism. 5. History of uterine cancer. PAST SURGICAL HISTORY: 1. Laparoscopic cholecystectomy. 2. Hysterectomy. 3. Total hip replacement. 4. Coronary artery disease. Bypass graft. SOCIAL HISTORY: She reports quitting smoking 50 years ago. She denies drinking alcohol, or using illicit drugs. ALLERGIES: Patient reports Zithromax cough, rash, Demerol cough, Flaxseed and Bactrim pain cause nausea and vomiting. REVIEW OF SYSTEMS: 11 systems were reviewed and all symptoms are related to H P. PHYSICAL EXAMINATION: VITALS: Temperature 97.6 degrees, heart rate 80, respiratory rate 20, blood pressure 170/64. O2 saturation 96% on room air. GENERAL EXAMINATION: This is a 76-year-old chronically ill-looking, frail, female lying in bed, in no acute distress using a BiPAP mask. HEENT: Head is normocephalic, atraumatic. Anicteric sclerae and pale conjunctivae. Mucous membranes dry. NECK: Supple. No JVD noted. No carotid bruits. No lymphadenopathy. No thyromegaly. CARDIOVASCULAR: S1 and S2 heard. No murmurs, gallops, or rubs. Regular rate and rhythm. RESPIRATORY: Decreased breath sounds globally with mild wheezing most predominantly in both bases. Patient is not using any accessory muscles or having work of breathing. ABDOMEN: Soft, nontender to palpation. Bowel sounds present. No organomegaly. EXTREMITIES: No clubbing, cyanosis, or edema. Peripheral pulses present in both legs. NEUROLOGICAL: Patient is alert and oriented x3. Able to move 4 extremities. Cranial nerves 2-12 grossly normal. LABORATORY DATA: The CBC is unremarkable. ABG shows pH 7.48 with pCO2 39, PO2 68 and BMP is also unremarkable except potassium 3.4, and glucose 111. ASSESSMENT AND PLAN: 1. Acute respiratory on chronic respiratory failure. 2. Chronic obstructive pulmonary disease exacerbation. 3. Hypothyroidism. 4. Diabetes mellitus. 5. Chronic hypertension. PLAN: 1. The patient is going to be admitted to the hospital. We will provide nebulizations with albuterol and Atrovent q.4 hours. We will add a long-acting anticholinergic and long- acting beta-dank to her current treatment while she is here. We are going to monitor this patient closely. 2. For high blood pressure we are going to restart all home medications. 3. For hypothyroidism we have ordered chest to check TSH. 4. Further recommendations to follow according to the clinical situation of the patient. cc: Rubén Becerra MD
--- NOTE | 2017-01-08 08:50 | Diag Imaging Result Document ---
PROCEDURE NAME: CHEST-2 VIEWS - 01/07/2017 CHEST TWO VIEWS: COMPARISON: Compared with December 26, 2016. FINDINGS: Heart size is normal. There are apparent COPD changes with mildly hyperexpanded lungs. There is scattered mild pulmonary scarring. There is no consolidation, pleural effusion, or pneumothorax identified. There is thoracic spondylosis noted. IMPRESSION: COPD change with mildly hyperexpanded lungs. No other acute changes.
--- NOTE | 2017-01-08 11:37 | Diag Imaging Result Document ---
PROCEDURE NAME: CT THORAX W/O CONTRAST - 01/08/2017 CT THORAX WITHOUT CONTRAST: TECHNIQUE: No contrast administered per request of the referring provider. A dose reduction protocol was used. Compared with 12/26/2016 and 04/29/2016. FINDINGS: There are COPD changes. There is pulmonary scarring which is most prominent at the anterior bilateral upper lobes and bilateral bases. There is a partially calcified granuloma from old granulomatous disease at the left upper lobe (image 42). There are two 4-mm nodules at the posterior right base (image 89) which have apparently increased in size compared to the 04/29/2016 exam. There are additional scattered tiny nodules which appear essentially stable. There is no consolidation, pleural effusion, or pneumothorax identified. There are nonspecific small mediastinal lymph nodes which appear stable. There are no substantially enlarged lymph nodes identified. IMPRESSION: 1. COPD and pulmonary scarring similar to recent exams. 2. Two nonspecific 4-mm nodular densities at the posterior right base which have enlarged compared to 04/29/2016. 3. No other visible acute process. No evidence of pneumonia.
[2017-01-08] MEDS: BREO ELLIPTA 200/25 MCG INH INH SCH (19:10)
[2017-01-08] MEDS: CRESTOR PO SCH (21:16)
[2017-01-08] MEDS: SINGULAIR PO SCH (21:16)
[2017-01-08] MEDS ORDERED: COLACE PO ONE (22:35)
[2017-01-09] MEDS: ROCEPHIN 1 GM/NS 1 GM/50 ML IVPB IV SCH (01:37)
[2017-01-09] MEDS: LEVAQUIN 750 MG/D5W 750 MG/150 ML IVPB IV SCH (02:21)
[2017-01-09] MEDS: DUONEB (A & A) INH SCH ×5 (03:06→19:14)
[2017-01-09] MEDS: NS 1,000 ML IV SCH (04:52)
[2017-01-09 06:13] LABS: BASO% 0.1 % (0.0-0.8); HEMOGLOBIN 10.7 g/dL (12.0-16.0); IMM GRAN# 0.06 X1000 (0.0-0.04); IMM GRAN% 0.4 % (0.0-0.5); LYMPH# 0.71 X1000 (1.2-3.4); LYMPH% 4.2 % (20.5-51.1); MANUAL DIFF NEEDED? YES; MCH 29.8 PG (27-31); MCHC 33.4 g/dL (33-37); MCV 89.1 FL (81-99); MPV 11.7 FL (7.4-10.4); NEUT% 92.3 % (42.2-75.2); PLT 193 X1000 (130-400); RBC 3.59 XMIL (4.2-5.4)
[2017-01-09] MEDS: SOLU-MEDROL IV SCH ×2 (06:22→17:30)
[2017-01-09] MEDS: SYNTHROID PO SCH (06:22)
[2017-01-09] MEDS: PRILOSEC PO SCH (06:23)
[2017-01-09] MEDS: LOVENOX SUBQ SCH (06:23)
[2017-01-09 07:00] LABS: CALCIUM 8.9 mg/dL (8.8-10.2); POTASSIUM 3.5 mmol/L (3.5-5.1)
[2017-01-09] MEDS: SPIRIVA INH SCH (08:21)
[2017-01-09 09:09] LABS: BANDS 0 % (0-1); LYMPHS 3 % (21-51); MONO 3 % (1-9)
[2017-01-09] MEDS: NORVASC PO SCH (10:31)
[2017-01-09] MEDS: HYDROCHLOROTHIAZIDE PO SCH ×2 (10:31→20:37)
[2017-01-09] MEDS: COZAAR PO SCH ×2 (10:31→20:37)
[2017-01-09] MEDS: THERA M PLUS PO SCH (10:32)
[2017-01-09] MEDS: FLONASE NAS SCH (10:32)
[2017-01-09] MEDS: BREO ELLIPTA 200/25 MCG INH INH SCH (12:12)
--- NOTE | 2017-01-09 14:55 | PROGRESS NOTE ---
DATE: 01/09/2017 SUBJECTIVE: The patient states that she feels some better today. She is having no shortness of breath at rest. She denies chest pain, palpitations. OBJECTIVE: Vital Signs: Blood pressure is 123/61 with a heart rate of 78, respirations are 16, temperature is 98.4 degrees with room air saturations of 94% to 97%. Cardiovascular: Regular rate and rhythm. S1 and S2 are appreciated. Pulmonary: She continues with scattered wheezes. No increased work of breathing noted. Gastrointestinal: Abdomen is soft, nontender, nondistended with bowel sounds in all 4 quadrants. Extremities: No clubbing, cyanosis, or edema. Pulses are palpable x4. Calves are nontender. Neurologic: She is alert and oriented x3. LABS: WBC is 16.9 with hemoglobin of 10.7, hematocrit 32 and platelets of 193. Sodium 138, potassium 3.5, BUN 31, creatinine 1 with a glucose of 166. ASSESSMENT/PLAN: 1. Acute respiratory failure in the setting of chronic respiratory failure. 2. Chronic obstructive pulmonary disease exacerbation. 3. Hypothyroid. 4. Diabetes mellitus. 5. Chronic hypertension. 6. Leukocytosis. We will continue with her current respiratory regimen with steroids to taper. Blood pressures have been in the 120-130 over 40-60 range. We will leave her medical regimen as is. TSH is 3.0. We will continue with her levothyroxine at the present dose. We will continue antibiotic coverage of Rocephin every 24 hours. Dictated by OPAL Dukes for Eder Pabon MD cc: OPAL Dukes MD
[2017-01-09] MEDS: LINZESS PO SCH (17:30)
--- NOTE | 2017-01-09 19:28 | ECHO REPORT ---
ORDER DATE: 01/08/2017 MEASUREMENTS: Left ventricular end-diastolic diameter 4.1, systolic diameter 2.6, posterior wall thickness 1.1, septal thickness 1.1, left atrium 2.9, aortic root 2.9. SUMMARY: 1. Technically difficult study due to limited acoustic window quality. 2. Aortic valve is trileaflet and opens adequately on 2-dimensional images. Peak gradient across aortic valve is increased at 20 mmHg with a mean gradient of 12 mmHg. This appears most likely due to hyperdynamic left ventricle as evidenced by elevated left ventricular outflow tract, velocity time interval of 31. Mitral, tricuspid and pulmonic valves are without evidence of structural abnormality with trace mitral regurgitation and mild tricuspid regurgitation. Estimated systolic PA pressure by Doppler is 45-50 mmHg. Aortic root is normal size. 3. Normal left ventricular chamber size with mild concentric left hypertrophy is demonstrated. Estimated left ejection fraction appears to be at least 70%. No regional wall motion abnormalities are evident. Doppler suggests grade 1 left ventricular diastolic dysfunction due to impaired relaxation. Left atrium, right atrium, and right ventricle are of normal in size with grossly preserved right ventricular systolic performance. 4. No pericardial effusion. 5. Appearance of inferior vena cava suggests normal central venous pressure. CONCLUSIONS: 1. Technically difficult study. 2. Mild tricuspid regurgitation with moderate pulmonary hypertension by Doppler. 3. Mild concentric left hypertrophy with somewhat hyperdynamic left ventricle and estimated left ejection fraction of at least 70%. 4. Doppler suggests grade 1 left ventricular diastolic dysfunction. 5. Moderate pulmonary hypertension. cc: MD Rubén Ojeda MD
[2017-01-09] MEDS: CRESTOR PO SCH (20:36)
[2017-01-09] MEDS: SINGULAIR PO SCH (20:37)
[2017-01-10] MEDS: DUONEB (A & A) INH SCH ×7 (01:30→23:08)
[2017-01-10] MEDS: ROCEPHIN 1 GM/NS 1 GM/50 ML IVPB IV SCH (01:43)
[2017-01-10] MEDS: LEVAQUIN 750 MG/D5W 750 MG/150 ML IVPB IV SCH (02:33)
[2017-01-10 06:26] LABS: BASO% 0.1 % (0.0-0.8); EOS# 0.01 X1000 (0.0-0.7); EOS% 0.1 % (0.0-10.0); HEMATOCRIT 33.6 % (37.0-47.0); IMM GRAN# 0.08 X1000 (0.0-0.04); IMM GRAN% 0.5 % (0.0-0.5); LYMPH# 0.84 X1000 (1.2-3.4); LYMPH% 5.3 % (20.5-51.1); MANUAL DIFF NEEDED? YES; MCH 29.5 PG (27-31); MCHC 32.7 g/dL (33-37); MCV 90.1 FL (81-99); MONO% 5.7 % (1.7-9.3); MPV 11.9 FL (7.4-10.4); NEUT% 88.3 % (42.2-75.2); PLT 186 X1000 (130-400); RBC 3.73 XMIL (4.2-5.4)
[2017-01-10 06:36] LABS: CALCIUM 9.1 mg/dL (8.8-10.2); POTASSIUM 3.9 mmol/L (3.5-5.1)
[2017-01-10] MEDS: SOLU-MEDROL IV SCH (06:36)
[2017-01-10] MEDS: SYNTHROID PO SCH (06:36)
[2017-01-10] MEDS: LINZESS PO SCH (06:36)
[2017-01-10] MEDS: PRILOSEC PO SCH (06:36)
[2017-01-10 06:49] LABS: EOS 1 % (1-10); LYMPHS 8 % (21-51); MONO 5 % (1-9)
[2017-01-10] MEDS: SPIRIVA INH SCH (07:36)
[2017-01-10] MEDS: THERA M PLUS PO SCH (10:24)
[2017-01-10] MEDS: HYDROCHLOROTHIAZIDE PO SCH (10:24)
[2017-01-10] MEDS: COZAAR PO SCH (10:24)
[2017-01-10] MEDS: NORVASC PO SCH (10:24)
[2017-01-10] MEDS ORDERED: LEVAQUIN 750 MG/D5W 750 MG/150 ML IVPB IV SCH (11:41)
--- NOTE | 2017-01-10 12:16 | PROGRESS NOTE ---
DATE: 01/10/2017 SUBJECTIVE: The patient notes that she feels okay this morning, she is just tired, does not have any chest pains or palpitations to speak of. OBJECTIVE: Vital signs: Temperature 97, pulse 79, respiratory rate 20, BP 105/36 to 155/55. General: The patient is awake, alert. She is currently in no respiratory distress. She is sitting in the chair without any difficulty. HEENT: Normocephalic. Neck: Supple. Cardiovascular: Regular rate. Chest: Relatively clear. Abdomen: Soft. Extremities: Moves all extremities. LABORATORY DATA: WBC 15, hemoglobin and hematocrit 11 and 33. BUN 38, creatinine 1.0, glucose 118. ASSESSMENT: 1. Mild volume depletion likely secondary to hydrochlorothiazide. Will hold this. 2. Hypotension. Will decrease her blood pressure medications. Will stop her hydrochlorothiazide. Will hold her Cozaar for now. 3. Leukocytosis, likely more secondary to steroids than to worsening infection as clinically she is improved. 4. Chronic obstructive pulmonary disease exacerbation. Stable. Will continue to wean her steroids. PLAN: Hopefully, if she continues to improve, she may be able to be discharged home later this afternoon to follow up with her primary care in 1-2 weeks. Otherwise, will continue her current medications. Further orders as needed. cc: Eder Pabon MD
[2017-01-10] MEDS: FLONASE NAS SCH (15:25)
[2017-01-10] MEDS: BREO ELLIPTA 200/25 MCG INH INH SCH (19:42)
[2017-01-10] MEDS: CRESTOR PO SCH (20:55)
[2017-01-10] MEDS: SINGULAIR PO SCH (20:55)
[2017-01-11] MEDS: ROCEPHIN 1 GM/NS 1 GM/50 ML IVPB IV SCH (01:21)
[2017-01-11] MEDS: DUONEB (A & A) INH SCH ×4 (03:12→10:37)
[2017-01-11] MEDS ORDERED: SOLU-MEDROL IV SCH (06:00)
[2017-01-11] MEDS: SYNTHROID PO SCH (06:16)
[2017-01-11] MEDS: LINZESS PO SCH (06:16)
[2017-01-11] MEDS: PRILOSEC PO SCH (06:16)
[2017-01-11 06:46] LABS: AGAP 15; BUN 31 mg/dL (8-22); CALCIUM 8.6 mg/dL (8.8-10.2); CHLORIDE 107 mmol/L (98-107); COSMO 287; POTASSIUM 3.7 mmol/L (3.5-5.1); SODIUM 141 mmol/L (136-145); TCO2 19 mmol/L (25-35)
[2017-01-11] MEDS: BREO ELLIPTA 200/25 MCG INH INH SCH (08:08)
[2017-01-11] MEDS: SPIRIVA INH SCH (08:14)
[2017-01-11] MEDS ORDERED: NEXIUM PO SCH (09:00)
[2017-01-11] MEDS ORDERED: LEVAQUIN PO SCH (09:00)
[2017-01-11] MEDS ORDERED: PREDNISONE PO ONE (09:06)
[2017-01-11] MEDS: FLONASE NAS SCH (09:39)
[2017-01-11] MEDS: THERA M PLUS PO SCH (09:39)
[2017-01-11] MEDS: NORVASC PO SCH (09:39)
[2017-01-11 11:59] VITALS: BP 137/47
--- NOTE | 2017-01-12 04:56 | DISCHARGE SUMMARY ---
ADMISSION DATE: 01/08/2017 DISCHARGE DATE: 01/11/2017 DISCHARGE DIAGNOSES: 1. Chronic obstructive pulmonary disease with mild exacerbation. 2. Acute on chronic respiratory failure, improved. 3. Hypothyroidism. 4. Diabetes. 5. Chronic hypertension. 6. Obstructive sleep apnea with home BiPAP. PRIMARY CARE PHYSICIAN: 1. Marilu Hamilton MD 2. OPAL Forde CONSULTATIONS: None. PROCEDURES: None. BRIEF HOSPITAL COURSE: The patient is a 76-year-old female, who was admitted as noted on the history of present illness, treated in usual fashion. Placed on treatment for chronic obstructive pulmonary disease with oxygen, breathing treatments, steroids, and antibiotics. She thankfully had an uneventful hospital course. She was continued on medications for her hypertension, diabetes, and hypothyroidism. Her blood sugars remained relatively stable throughout the hospital stay. Her average blood sugar was 118-154. She is noted to have a mild leukocytosis, which is felt secondary to steroid use. She continued to improve. On discharge, she was awake, alert. She was able to ambulate through the ramirez without much difficulty. She is still having mild shortness of breath, but she notes this was almost back to her baseline. DISPOSITION: The patient will be discharged home. She will continue her home medications without any changes. We will continue Levaquin for 5 more days, breathing treatments. She will follow up with Jocelynn West in the next 1-2 weeks, sooner should symptoms worsen or return. TIME SPENT: Thirty-five minutes was spent in discharge planning and instructions. cc: Eder Pabon MD
--- NOTE | 2017-01-12 07:12 | Extremity Venous Study ---
PROCEDURE NAME: Carotid Ultrasound - 01/09/2017 CAROTID ULTRASOUND: INDICATION: History of carotid stenosis with right endarterectomy. FINDINGS: Right carotid system: Right subclavian artery velocity is 287 cm/sec. This may indicate a greater than 50% stenosis. Velocity within the right external carotid artery is 204 cm/sec. This likely represents a greater than 50% stenosis. There is mild intimal thickening within the right carotid bulb. ICA/CCA ratio is within normal limits. Maximal internal carotid artery velocity is 113 cm/sec. Estimated stenosis is less than 50%. There is a right bulb graft without adverse features. Left carotid system: Left subclavian velocity is 274 cm/sec which may indicate a greater than 50% stenosis. There is elevated velocity within the proximal left internal carotid artery to 200 cm/sec. This is consistent with a stenosis in the 50%-69% range. Left external carotid artery velocity is 173 cm/sec. There is heterogeneous plaque formation throughout the left carotid artery. Left ICA/CCA ratio is within normal limits at 1.5. Vertebral flow is antegrade bilaterally. IMPRESSION: 1. Findings consistent with a stenosis in the 50%-69% range proximal left internal carotid artery. 2. Bilateral subclavian artery velocities suggest a stenosis greater than 50%. 3. Status post right carotid endarterectomy without adverse features.
== END 2017-01-11 12:35 | disposition home or self-care (01) ==
LOC: ED 16:24 → P.MEDSURG 16:24 → SUATTDRO 01-08 00:35 → OBSVTOIN 01-08 00:35
PROVIDERS: ATTEND Family Medicine